=== PATIENT | male | born 1995 | race Caucasian/White ===

== ENCOUNTER 2024-04-08 13:43 | Emergency (ER) | payer BC ==
[2024-04-08 13:57] VITALS: RESP 18; BMI 31.4
[2024-04-08] MEDS ORDERED: FENTANYL CITRATE/PF 50 MCG/ML VIAL ONE (14:00)
[2024-04-08] MEDS ORDERED: IBUPROFEN 400 MG TABLET (FP) PO ONE (14:30)
[2024-04-08] MEDS ORDERED: ACETAMINOPHEN 325 MG TABLET (FP) ONE (14:30)
[2024-04-08] MEDS: IBUPROFEN 400 MG TABLET (FP) PO ONE (14:31)
[2024-04-08] MEDS: ACETAMINOPHEN 500 MG TABLET (FP) PO ONE (14:34)
[2024-04-08 15:27] VITALS: BP 129/67; PULSE 87; TEMP 98.3
== END 2024-04-08 15:53 | disposition home or self-care (01) ==
LOC: JER 13:43
PROC: 0QSFXZZ Reposition Left Patella, External Approach (ICD-10-PCS; principal; 2024-04-08)
PROC: 3E033NZ Introduction of Analgesics, Hypnotics, Sedatives into Peripheral Vein, Percutaneous Approach (ICD-10-PCS; 2024-04-08)
DX: S83.095A Other dislocation of left patella, initial encounter (principal); W18.40XA Slipping, tripping and stumbling without falling, unspecified, initial encounter
CPT/HCPCS: 73562-TC-LT-FY; 99284-25